=== PATIENT | female | born 1995 | race Caucasian/White ===

== ENCOUNTER 2017-02-26 15:30 | Inpatient (IN) | payer OTHER ==
[~2017-02-26] VITALS: Ht 157.5 cm; Wt 84.5 kg
[2017-02-26 16:20] VITALS: BP 117/67; PULSE 89; RESP 20
[2017-02-26 16:25] VITALS: Ht 157.5 cm; Wt 84.5 kg
[2017-02-26] MEDS ORDERED: PREN-93 PO (16:30)
[2017-02-26] MEDS: LACTATED RINGER'S 1,000 ML IV SCH (16:46)
[2017-02-26] MEDS ORDERED: AMPICILLIN 2 GM/NS (PMX) 100 ML IV ONE (17:00)
[2017-02-26] MEDS ORDERED: OXYTOCIN 30 UNITS/LR 500 ML IV SCH ×2 (17:00)
[2017-02-26] MEDS ORDERED: LIDOCAINE 1% (MPF) 30 ML INJ INJ PRN (17:00)
[2017-02-26] MEDS ORDERED: CARBOPROST 250 MCG INJ IM PRN (17:00)
[2017-02-26] MEDS ORDERED: BUTORPHANOL 2 MG INJ IV PRN ×2 (17:00)
[2017-02-26] MEDS ORDERED: MINERAL OIL LIGHT 10 ML VIAL TOP PRN (17:00)
[2017-02-26] MEDS ORDERED: OXYTOCIN 30 UNITS/LR 500 ML IV PRN (17:00)
[2017-02-26] MEDS ORDERED: IBUPROFEN 600 MG TAB PO PRN (17:00)
[2017-02-26] MEDS ORDERED: METHYLERGONOVINE 0.2 MG INJ IM PRN (17:00)
[2017-02-26] MEDS ORDERED: MISOPROSTOL 200 MCG TAB PR PRN (17:00)
[2017-02-26 17:05] LABS: WHITE BLOOD COUNT 10.6 10^3/ul (4.8-10.8)
[2017-02-26 17:06] LABS: BASOPHILS % 0.4 % (0.0-2.0); EOSINOPHILS # 0.3 10^3/ul (0.0-0.5); EOSINOPHILS % 2.3 % (0.0-7.0); HEMATOCRIT 37.5 % (37.0-47.0); HEMOGLOBIN 13.3 g/dl (12.0-16.0); LYMPHOCYTES # 1.7 10^3/ul (0.8-2.9); LYMPHOCYTES % 15.7 % (15.0-51.0); MEAN CORPUSCULAR HEMOGLOBIN 30.4 pg (29.0-33.0); MEAN CORPUSCULAR HGB CONC 35.5 g/dl (32.0-37.0); MEAN CORPUSCULAR VOLUME 85.8 fl (82.0-101.0); MEAN PLATELET VOLUME 9.7 fl (7.4-10.4); MONOCYTE # 0.8 10^3/ul (0.3-0.9); MONOCYTES % 7.9 % (0.0-11.0); NEUTROPHIL # 7.7 10^3/ul (1.6-7.5); NEUTROPHILS % 72.6 % (39.0-77.0); PLATELET COUNT 261 10^3/UL (140-415); RED BLOOD COUNT 4.37 10^6/ul (4.20-5.40); RED CELL DISTRIBUTION WIDTH 12.9 % (11.5-14.5)
[2017-02-26 17:25] LABS: INR 0.97; PROTIME 12.9 Sec (12.2-14.2)
[2017-02-26 17:26] LABS: PARTIAL THROMBOPLASTIN TIME 30.8 Sec (25.0-35.0)
[2017-02-26] MEDS ORDERED: DINOPROSTONE 10 MG VAG SUPP VAG PRN (17:30)
[2017-02-26] MEDS ORDERED: LACTATED RINGER'S 1,000 ML IV PRN (18:00)
--- NOTE | 2017-02-26 18:00 | RADRPT ---
PROCEDURE: US limited OB for weight CLINICAL INDICATION: weight TECHNIQUE: Multiple sonographic images of the pelvis were obtained. Transabdominal imaging only w as performed. The images were reviewed on a PACS workstation. COMPARISON: No prior studies are available for comparison. FINDINGS: There is a single viable intrauterine gestation. Cardiac activity is present with 134 beats per minute. There is a cephalic presentation. Measurements were made in order to determine age. The results are as follows: BPD = 8.9 cm. HC = 31.7 cm. AC = 33.9 cm. FL = 7.3 cm. Estimated gestational age of approximately 36 weeks 6 days. The estimated date of delivery is 03/20/2017. The EFW = 3155 g. Growth percentile 9.4 %. The placenta is fundal grade II. There is no evidence for an abruption or placenta previa. IMPRESSION: 1. Single viable intrauterine gestation of approximately 36 weeks 6 days. 2. Estimated weight is 3155 grams with a growth percentile of 9.4 %. RPTAT: QQ .Barrett Amezcua MD, Date Time Electronically viewed and signed by .Barrett Amezcua MD, on 02/26/2017 18:00 .L/
[2017-02-26] MEDS: AMPICILLIN 1 GM/NS (PMX) 50 ML IVPB SCH (21:41)
[2017-02-27] MEDS: AMPICILLIN 1 GM/NS (PMX) 50 ML IVPB SCH ×6 (01:09→21:00)
[2017-02-27] MEDS: LACTATED RINGER'S 1,000 ML IV SCH ×3 (01:09→14:45)
--- NOTE | 2017-02-27 01:34 | NSTRPT ---
NST Information Datetime Report Generated by CPN: 02/27/2017 01:34 Datetime: 02/25/2017 13:57 NST Information EGA: 40.6 Test Number: 2 Time on Monitor: 02/25/2017 13:59 Time off Monitor: 02/25/2017 14:27 NST Duration (Min): 28 Reason for NST: Other Reason for NST Other: Post dates Test and Monitor Explained: Monitor Explained; Test Explained; Verbalized Understanding; Breastfee ding Info Given Pulse: 76 Resp: 20 SBP: 98 DBP: 61 Test Evaluation NST Interventions: Reposition Patient Patient States Movement: Present Contraction Frequency: x1, mild FHR Baseline : 140 Variability: Moderate 6-25bpm Accelerations: 15X15 Decelerations: None FHR Category: Category I NST Results: Reactive Comments: To US. VIKASH 15.6cm, cephalic. EFM on. FHR reassuring. Pt without complaint. 1448-Pt discharged home with term labor precautions, discussed kick counts. Pt scheduled fo r induction tomorrow in Labor and delivery. POC discussed with patient. Pt verbalizes understanding and denies any further questions at this time. Comments: To US.VIKASH 15.6cm EFM on. FHR reassuring. Pt without complaint. Electronically Signed By E-Signature: with User ID: [id number] Datetime: 02/23/2017 13:57 NST Information EGA: 40.4 Test Number: 1 Time on Monitor: 02/23/2017 14:19 Time off Monitor: 02/23/2017 14:59 NST Duration (Min): 40 Reason for NST: Other Reason for NST Other: POST DATES Test and Monitor Explained: Monitor Explained; Test Explained; Verbalized Understanding Pulse: 72 Resp: 18 SBP: 107 DBP: 53 Test Evaluation NST Interventions: None Patient States Movement: Present Contraction Frequency: X2(denies) FHR Baseline : 130 Variability: Moderate 6-25bpm Accelerations: 15X15 Decelerations: None FHR Category: Category I NST Results: Reactive Comments: PT TO U/S.VIKASH 13.3cm. CEPHALIC. 1504-Pt home undelivered with LABOR precautions. Follow up NST appointment given. kick count instructions reviewed. Pt states understanding. No furhte r questions asked at this time.
--- NOTE | 2017-02-27 01:35 | NSTRPT ---
NST Information Datetime Report Generated by CPN: 02/27/2017 01:35 Datetime: 02/23/2017 13:57 Electronically Signed By E-Signature: with User ID: [id number]
[2017-02-27] MEDS ORDERED: OXYTOCIN 30 UNITS/LR 500 ML IV SCH ×2 (08:00→21:20)
--- NOTE | 2017-02-27 10:05 | HP ---
Date/Time of Note Date/Time of Note DATE: 02/27/17 TIME: 09:56 OB - History Hx of Present Free Text/Dictation 21 years old female admitted to [facility] at 40 weeks and 1 day for induction of labor pelvic examination on admission cervical dilatation 1-1/2 cm 80% effacement vertex is -2 station with intact membranes heart rate category 1 plan of induction with Cervidil discussed with the patient process of induction was discussed all her questions were answered we will continue expecting management. And response to induction. Chief Complaint: 41 weeks and 1 day admitted for induction of labor Estimated Due Date: Feb 19, 2017 : 1 Para: 0 Care: Good Care Ultrasounds: Normal mid trimester US Obstetrical Complications: None Medical Complications: None Past Family/Social History * Past Medical, Surgical, Family and Obstetric Histories reviewed from chart. Rubella: immune RPR/VDRL: Negative GBS Status: Negative HBsAG: Negative OB Admission Exam Vital Signs Vital Signs Vital Signs Date Time Temp Pulse Resp B/P Pulse Ox O2 Delivery O2 Flow Rate FiO2 02/26/17 16:20 98.9 89 20 117/67 96 Room Air Physical Exam HEENT: WNL Heart: Rhythm Normal Lungs: Clear, Equal Abdomen: WNL Extremities: Normal Reflexes: Normal Cervical Dilatation: 2cm Effacement: Other (80%) Station: -1 Membranes: Intact Heart Rate: 130's Accelerations: Accelerations Present Decelerations: No Decelerations Varibility: Moderate Contractions on Admission: >10 Minutes Apart Intensity: Mild Last 72 hours Lab Results CBC & BMP 02/26/17 16:46 OB Assessment/Plan Reason for admission: other (21 years old 1 para 0 EDC February 19, 2017 admitted for induction of labor cervical dilatation on admission cervix 1-1/2 cm dilated 80% effaced vertex is -1 -2 station plan of Cervidil induction to follow with possible Pitocin induction was discussed with the patient or questions answered we would proceed with the induction as described) FLOYD MAHONEY MD Feb 27, 2017 10:05
[2017-02-27] MEDS ORDERED: FENTAnyl 2MCG/ML-ROPIV 0.2% 100 ML ONE (14:44)
[2017-02-27] MEDS ORDERED: NALOXONE (0.4 MG/ML) INJ IV PRN (16:00)
[2017-02-27] MEDS ORDERED: FENTAnyl 2MCG/ML-ROPIV 0.2% 100 ML BAG EPI SCH (16:00)
[2017-02-27] MEDS ORDERED: ONDANSETRON 4 MG INJ IV PRN ×2 (16:00→21:30)
[2017-02-27] MEDS ORDERED: DIPHENHYDRAMINE 50 MG INJ IV PRN (16:00)
--- NOTE | 2017-02-27 17:28 | LDN ---
Date/Time of Note Date/Time of Note DATE: 02/27/17 TIME: 17:23 Delivery Summary Normal spontaneous vaginal delivery of a baby girl from OA position shoulders delivered without any difficulty rest of the baby's body followed cord clamped after stopped pulsing placenta is spontaneous expulsion inspected complete patient sustained two small bilateral labial laceration, repaired with 4-0 chromic catgut estimated blood 200 cc Weeks of Gestation 41 week 1 day Placenta Delivered: Spontaneously Episiotomy: No Perineal laceration: 1 Laceration repair: Bilateral labial laceration, very small first-degree laceration repaired with 4-0 chromic catgut Anesthesia type: Epidural Estimated blood loss: 200 Sponge & Needle done & correct: Yes All needle counts correct: Yes Any foreign bodies felt in the: No Problems: Delivery Information Sex Infant Sex: female Apgars 1 Minute: 9 5 Minute: 9 Suctioning Nose & mouth suctioned at lizbeth: Yes Delee suction performed: No Umbilical Cord Umbilical cord with: 3 Vessels Cord presentations: no nuchal cord Cord Blood was obtained: Yes FLOYD MAHONEY MD Feb 27, 2017 17:28
[2017-02-27 21:00] VITALS: BP 112/62; RESP 20
[2017-02-27] MEDS ORDERED: ACETAMINOPHEN/CODEINE #3 TAB PO PRN ×2 (21:30)
[2017-02-27] MEDS ORDERED: BENZOCAINE 20% 56 ML SPRAY TOP PRN (21:30)
[2017-02-27] MEDS ORDERED: ACETAMINOPHEN 325 MG TAB PO PRN (21:30)
[2017-02-27] MEDS ORDERED: LANOLIN 7 GM TUBE TOP PRN (21:30)
[2017-02-27] MEDS ORDERED: OXYCODONE/ASPIRIN (4.88/325) TAB PO PRN ×2 (21:30)
[2017-02-27] MEDS ORDERED: WITCH HAZEL/GLYCERIN PAD PR PRN (21:30)
[2017-02-27] MEDS ORDERED: DIBUCAINE 1% 30 GM OINT PR PRN (21:30)
[2017-02-27] MEDS: SENNA/DOCUSATE NA (8.6MG/50MG) TAB PO SCH (22:25)
[2017-02-28] VITALS: BP 110/58; PULSE 88; RESP 18
[2017-02-28] MEDS: IBUPROFEN 600 MG TAB PO SCH ×5 (01:01→23:46)
[2017-02-28 02:25] LABS: BASOPHIL # 0.1 10^3/ul (0.0-0.1); BASOPHILS % 0.4 % (0.0-2.0); EOSINOPHILS # 0.2 10^3/ul (0.0-0.5); EOSINOPHILS % 1.3 % (0.0-7.0); HEMATOCRIT 31.2 % (37.0-47.0); HEMOGLOBIN 10.8 g/dl (12.0-16.0); LYMPHOCYTES % 13.9 % (15.0-51.0); MEAN CORPUSCULAR HEMOGLOBIN 29.8 pg (29.0-33.0); MEAN CORPUSCULAR HGB CONC 34.6 g/dl (32.0-37.0); MEAN CORPUSCULAR VOLUME 86.2 fl (82.0-101.0); MEAN PLATELET VOLUME 9.8 fl (7.4-10.4); MONOCYTE # 1.4 10^3/ul (0.3-0.9); NEUTROPHIL # 10.4 10^3/ul (1.6-7.5); NEUTROPHILS % 73.8 % (39.0-77.0); PLATELET COUNT 233 10^3/UL (140-415); RED BLOOD COUNT 3.62 10^6/ul (4.20-5.40); RED CELL DISTRIBUTION WIDTH 12.9 % (11.5-14.5); WHITE BLOOD COUNT 14.1 10^3/ul (4.8-10.8)
[2017-02-28 04:00] VITALS: BP 109/69; PULSE 75; RESP 20
[2017-02-28 07:30] VITALS: BP 103/56; PULSE 77; RESP 18
--- NOTE | 2017-02-28 09:09 | PN ---
Date/Time of Note Date/Time of Note DATE: 02/28/17 TIME: 09:08 OB Subjective Subjective Subjective day 1 Vital signs are stable Abdomen soft Uterus firm Lochia normal Extremity normal Ambulation encouraged FLOYD MAHONEY MD Feb 28, 2017 09:09
[2017-02-28] MEDS: SENNA/DOCUSATE NA (8.6MG/50MG) TAB PO SCH ×2 (09:39→21:27)
[2017-02-28 16:00] VITALS: BP 116/74; PULSE 74; RESP 18
[2017-02-28 20:00] VITALS: BP 110/57; PULSE 68; RESP 18
[2017-02-28] MEDS ORDERED: VITAMIN A & D 5 GM OINT PACKET TOP ONE (22:09)
[2017-03-01 03:55] VITALS: BP 107/63; PULSE 70; RESP 18
[2017-03-01] MEDS: IBUPROFEN 600 MG TAB PO SCH (06:24)
[2017-03-01 08:20] VITALS: BP 108/56; PULSE 69; RESP 19
[2017-03-01] MEDS ORDERED: MEASLES,MUMPS,RUBELLA VACCINE INJ SC* ONE (09:00)
[2017-03-01] MEDS: SENNA/DOCUSATE NA (8.6MG/50MG) TAB PO SCH (10:02)
--- NOTE | 2017-03-01 10:29 | DS ---
Date/Time of Note Date/Time of Note DATE: 03/01/17 TIME: 10:27 Discharge Summary Admission/Discharge Info Admit Date/Time Feb 26, 2017 at 15:30 Discharge Date/Time March 01, 2017 at 10:15 AM Discharge Diagnosis Post normal vaginal delivery day 2 Patient Condition: Good Procedures Normal vaginal delivery Hx of Present Illness Term in labor Hospital Course Satisfactory uneventful Home Meds Reported Medications Vit No.124/Iron/FA ( Vitamin Tablet) 1 Each Tablet, 1 EACH PO, TAB 02/26/17 Follow-up Plan instructions given recommended to make appointment to be seen at the clinic in 2 weeks Primary Care Provider [facility] Time spent on discharge: < 30 minutes FLOYD MAHONEY MD Mar 01, 2017 10:29
== END 2017-03-01 12:10 | disposition home or self-care (01) | DRG 775 ==
LOC: L-D 15:30 → EDUNIT# 16:00 → PP1 02-27 20:41
PROVIDERS: ADMIT Obstetrics & Gynecology; ATTEND Obstetrics & Gynecology
PROC: 3E033VJ Introduction of Other Hormone into Peripheral Vein, Percutaneous Approach (ICD-10-PCS; 2017-02-26)
PROC: 10E0XZZ Delivery of Products of Conception, External Approach (ICD-10-PCS; principal; 2017-02-27)
PROC: 0HQ9XZZ Repair Perineum Skin, External Approach (ICD-10-PCS; 2017-02-27)
DX: O80 Encounter for full-term uncomplicated delivery (principal); Z37.0 Single live birth; O70.0 First degree perineal laceration during delivery; Z3A.41 41 weeks gestation of pregnancy
CPT/HCPCS: 62319; 76815; 85025; 85610; 85730; 86592; 86900; 86901; 87340; A4310; J0290; J0595; J1200; J2590; J3010; J7120

== ENCOUNTER 2018-02-24 12:42 | Day surgery (SDC) | END 2018-02-24 20:07 | disposition home or self-care (01) ==

== ENCOUNTER 2019-05-22 06:18 | Day surgery (SDC) | payer OTHER ==
[~2019-05-22] VITALS: Ht 157.5 cm; Wt 64.4 kg
[~2019-05-22 06:18] MED LIST: NO HOME MEDS
[2019-05-22 07:22] VITALS: Ht 157.5 cm; Wt 64.4 kg
[2019-05-22 07:42] VITALS: BP 102/55; PULSE 62; RESP 18
[2019-05-22] MEDS ORDERED: FENTAnyl 50 MCG/ML VIAL ONE (09:11)
[2019-05-22] MEDS ORDERED: MIDAZOLAM 1 MG/ML 2 ML INJ ONE ×3 (09:11)
[2019-05-22 09:36] VITALS: BP 102/58; RESP 20
== END 2019-05-22 12:23 | disposition home or self-care (01) ==
LOC: GIL 06:18
PROVIDERS: ATTEND Internal Medicine Gastroenterology
DX: K64.8 Other hemorrhoids (principal); K29.50 Unspecified chronic gastritis without bleeding; K21.9 Gastro-esophageal reflux disease without esophagitis
CPT/HCPCS: 43239; 45380; 88305; 88312; J2250; J3010; Z7610